=== PATIENT | female | born 2000 | race Hispanic/Latino ===

== ENCOUNTER 2018-06-07 00:09 | Observation (INO) ==
[2018-06-07] MEDS ORDERED: ZOFRAN IV ONE ×2 (01:20→07:39)
[2018-06-07] MEDS ORDERED: MORPHINE IV ONE ×2 (01:20→08:45)
[2018-06-07] MEDS ORDERED: NS 1,000 ML IV ONE ×5 (01:20→07:55)
[2018-06-07 01:34] LABS: URINE SOURCE CLEAN CATCH
[2018-06-07 01:37] LABS: BASO# 0.03 X1000 (0.0-0.2); BASO% 0.4 % (0.0-0.8); EOS# 0.12 X1000 (0.0-0.7); EOS% 1.4 % (0.0-10.0); HEMATOCRIT 39.2 % (37.0-47.0); IMM GRAN# 0.03 X1000 (0.0-0.04); IMM GRAN% 0.4 % (0.0-0.5); LYMPH# 2.24 X1000 (1.2-3.4); MCH 27.3 PG (27-31); MCHC 33.2 g/dL (33-37); MCV 82.2 FL (81-99); MONO# 0.72 X1000 (0.11-0.59); MONO% 8.7 % (1.7-9.3); MPV 10.8 FL (7.4-10.4); NEUT# 5.17 X1000 (1.4-6.5); NEUT% 62.1 % (42.2-75.2); PLT 263 X1000 (130-400); RBC 4.77 XMIL (4.2-5.4); RDW 14.2 % (11.5-14.5); WBC 8.31 X1000 (4.8-10.8)
[2018-06-07 01:57] LABS: BILIRUBIN URINE NEGATIVE (NEGATIVE); BLOOD URINE SMALL (NEGATIVE); COLOR YELLOW; GLUCOSE URINE NEGATIVE (NEGATIVE); KETONE URINE NEGATIVE (NEGATIVE); LEUKOCYTES URINE MODERATE (NEGATIVE); NITRITE URINE NEGATIVE (NEGATIVE); PH URINE 5.5; PROTEIN URINE TRACE mg/dL (NEGATIVE); SP GRAVITY URINE 1.028; TURBIDITY URINE CLEAR (CLEAR); UR EPITHELIAL CELLS <10 /HPF (<10); URINE BACTERIA 1+ /HPF; URINE RBC <10 /HPF (<10); URINE WBC 20-40 /HPF (<10); UROBILINOGEN URINE NORMAL (NORMAL)
[2018-06-07 02:15] LABS: AGAP 11; BUN 13 mg/dL (8-22); CALCIUM 9.6 mg/dL (8.8-10.2); CHLORIDE 105 mmol/L (98-107); COSMO 279; CREATININE 0.4 mg/dL (0.5-0.9); ESTIMATED GFR > 60; GLUCOSE 94 mg/dL (70-104); POTASSIUM 4.3 mmol/L (3.5-5.1); SODIUM 140 mmol/L (136-145); TCO2 24 mmol/L (25-35)
[2018-06-07] MEDS ORDERED: ROCEPHIN 1 GM in NS 50 ML IV ONE (02:17)
--- NOTE | 2018-06-07 05:27 | PROVIDER DOCUMENTATION ---
This chart was entered by Stacy Watts Scribe, acting as scribe for David Herbert MD. HPI-Abdominal Pain/GI Problem - General Chief Complaint: Abdominal Pain Stated Complaint: PAIN/DIZZY Time Seen by Provider: 06/07/18 00:50 Source: patient Allergies/Adverse Reactions: Patient Allergies Allergy/AdvReac Type Severity Reaction Status Date / Time seafood Allergy ANAPHYLAXIS Uncoded 05/29/18 20:19 Home Medications: Home Medication List Medication Instructions Recorded Confirmed Last Taken Type Doxylamine/Pyridoxine HCl 1 ea PO BID 30 Days #60 tablet.dr 05/29/18 Unknown Rx [Diclegis Dr 10-10 mg Tablet] Ondansetron [Ondansetron Odt] 4 mg PO Q8H PRN PRN 3 Days #12 06/07/18 Unknown Rx tab.rapdis - History of Present Illness-ABD Nature of Presenting Problems: 17 yof presents to er w/co 3 hours ago, epigastric and llq pain. pt states she was carrying 3 yo son when pain started. pt has no prior medical hx. pt was seen in er last week for nausea and vomiting and had positive test. pt reports she is 5 weeks . continues on macrodantin as prescribe this ER less than 1 wk ago. Abdominal Pain Onset Location: reports: LLQ, epigastric Pain Radiation: reports: no radiation Quality of Pain: reports: aching Severity in ED: reports: moderate Review of Systems - Adult - REVIEW OF SYSTEMS - ADULT Constitutional: reports: no symptoms reported. denies: chills, fever Eyes: reports: no symptoms reported Ears, Nose, Mouth & Throat: reports: no symptoms reported Cardiovascular: reports: no symptoms reported Respiratory: reports: no symptoms reported Gastrointestinal: reports: see HPI, abdominal pain (llq and epigastric). denies: diarrhea, nausea, vomiting Genitourinary: reports: no symptoms reported Musculoskeletal: reports: no symptoms reported Integumentary: reports: no symptoms reported Neurological: reports: no symptoms reported. denies: headache/migraines, loss o f balance, syncope Psychiatric: reports: no symptoms reported Endocrine: reports: no symptoms reported Hematologic/Lymphatic: reports: no symptoms reported Allergic/Immunologic: reports: no symptoms reported All Other Systems: Reviewed and Negative Past History - Adult - PAST MEDICAL HISTORY-ADULT Review of Records: reports: Old Records Reviewed, Nursing Assessment Review, Medications Reviewed, Social history reviewed & non-contributory. Major Childhood Illnesses: reports: denies history Cardiovascular: reports: denies history Respiratory: reports: denies history Gastrointestinal: reports: denies history Obstetrical/Gynecological: reports: denies history Genitourinary: reports: denies history Musculoskeletal: reports: denies history Neurological: reports: denies history Endocrine/Immune: reports: denies history Other Conditions: reports: denies history - PRIOR SURGERIES/PROCEDURES Surgical/Procedure History: reports: none - IMMUNIZATION STATUS Childhood Immunizations: See Nurse Assessment Flu Vaccine: See Nurse Assessment - FAMILY HISTORY Family History: reviewed, not pertinent - SOCIAL HISTORY Smoking: non-smoker Substance Use: none/never Physical Exam-General - PHYSICAL EXAM-ADULT Initial Vital Signs Reviewed: Yes - CONSTITUTIONAL General Appearance: alert, moderate distress. negative: slow to respond, obtunded, combative - EYES Eyes: PERRL/EOMI - HEAD, EARS, NOSE, MOUTH & THROAT HENMT: normocephalic/atraumatic, moist mucous membranes, normal ENT inspection - NECK Neck: non-tender, full range of motion, supple, normal inspection - RESPIRATORY Respiratory: chest non-tender, lungs clear, normal breath sounds. negative: respiratory distress, decreased breath sounds, accessory muscle use - CARDIOVASCULAR Cardiovascular: normal peripheral pulses, regular rate, rhythm. negative: JVD, bradycardia, tachycardia - GASTROINTESTINAL (ABDOMEN) Abdominal Exam: normal bowel sounds, soft, no organomegaly, no pulsatile mass, tenderness (llq and epigastric moderate). negative: non tender, abnormal bowel sounds, distended, guarding - LYMPHATIC Lymphatic: no adenopathy - MUSCULOSKELETAL Back Exam: normal inspection, no CVA tenderness, no vertebral tenderness Extremity: normal range of motion, non-tender, normal inspection Peripheral Pulses: radial (R): 2+, radial (L): 2+ - SKIN Integumentary: normal color, normal turgor, diaphoresis. negative: rash, swelling, tenderness - NEUROLOGIC Neurologic: environmental scientist II-XII nml as tested, grossly normal - PSYCHIATRIC Psych/Mental Status: normal mood/affect, normal thought content, normal thought process, oriented x 3, disheveled. negative: depressed affect, paranoid, tearful Progress - PLAN OF CARE/RESULTS Progress/Plan/Lab Results: Vital Signs - 8 hr 06/07/18 00:15 Temperature 98.4 F Pulse Rate 82 Respiratory Rate 20 Blood Pressure 104/65 O2 Sat by Pulse Oximetry 98 Result Diagrams: 06/07/18 00:40 06/07/18 00:40 - REASSESSMENT Reassessment #1 Time Reassessed: 05:07 Status: improving (NOT TRANSVAG U/S REPORT , NO INTRAUTERINE OR ECTOPIC IDENTIFIED,FLUID IN THE CX. HCG ONLY 1999. NO VAG BLEEDING . UTI IS PRESENT AND POSSIBLY THE SOURCE OF THE PELVIC PAIN.) Reassessment #2 Time Reassessed: 05:19 Status: improving (resting w/o vomiting . results reviewed w. pt and . will continue on macrobid 9which has been suplimented with wilberto delatorre) as urine culture from 05/29 is mixed eri.) - ULTRASOUND (By Radiology) 1 US Study: Transvaginal Impression: Normal (small amunt poorly visiualized flind in cervix/ no intrauterine or ectopic pregancy seen.), See EMR Report Departure - Departure Date of Disposition Decision: 06/07/18 Time of Disposition Decision: 05:10 DIAGNOSIS: UTI (urinary tract infection), test positive, Nausea & vomiting Disposition: HOME 01 Certified Medical Emergency: Emergent Condition: Stable Additional Freetext Instructions: ED Follow Up Instructions: You have been treated by a care provider in the Emergency Department. These instructions are being provided to you so you can have an understanding of how to care for yourself upon discharge. Upon discharge from the Emergency Depar tment, you are responsible for making arrangements for follow-up care by a physician of your choice. Take all prescribed medications as directed. Return to the Emergency Department immediately for any new or worsening symptoms. You may call the Physician Referral phone number at [phone] to obtain a list of Physicians who are taking new patients. Prescriptions: Ondansetron [Ondansetron Odt] 4 mg PO Q8H PRN PRN 3 Days #12 tab.rapdis PRN Reason: Nausea And Vomiting Referrals and Follow-Ups: None,PCP [Primary Care Provider] - Discharge Education: Urinary Tract Infection, Adult, and Urinary Tract Infection, First Trimester of , [id number] - Critical Care Note This patient required my direct & personal management of CC.: No Attestation - Physician/ RENETTA Attestation Patient care was provided by Advanced Practice Provider:: No The physician spent face to face time with patient:: Yes Advanced Practice Provider documentation review:: Supervising physician onsite and consulted in the evaluation and care of this patient. The physician did have a face to face encounter with the patient. This chart was documented by the indicated scribe, (Stacy Watts Scribe) and accurately reflects the services I performed and decisions made by me, David Herbert MD, as attested by the provider's signature.
[2018-06-07 07:28] LABS: BASO# 0.02 X1000 (0.0-0.2); BASO% 0.3 % (0.0-0.8); EOS# 0.07 X1000 (0.0-0.7); EOS% 1.1 % (0.0-10.0); HEMATOCRIT 34.3 % (37.0-47.0); HEMOGLOBIN 11.1 g/dL (12.0-16.0); IMM GRAN# 0.02 X1000 (0.0-0.04); IMM GRAN% 0.3 % (0.0-0.5); LYMPH# 2.24 X1000 (1.2-3.4); LYMPH% 34.6 % (20.5-51.1); MCH 26.6 PG (27-31); MCHC 32.4 g/dL (33-37); MCV 82.3 FL (81-99); MONO# 0.59 X1000 (0.11-0.59); MONO% 9.1 % (1.7-9.3); MPV 10.7 FL (7.4-10.4); NEUT# 3.53 X1000 (1.4-6.5); NEUT% 54.6 % (42.2-75.2); PLT 218 X1000 (130-400); RBC 4.17 XMIL (4.2-5.4); RDW 14.1 % (11.5-14.5); WBC 6.47 X1000 (4.8-10.8)
[2018-06-07] MEDS ORDERED: XYLOCAINE-MPF 2% ONE (08:43)
[2018-06-07] MEDS ORDERED: ZOFRAN ONE (08:43)
[2018-06-07] MEDS ORDERED: DECADRON ONE ×2 (08:43→09:26)
[2018-06-07] MEDS ORDERED: DIPRIVAN 1% ONE (08:43)
[2018-06-07] MEDS ORDERED: ROBINUL ONE ×2 (08:43→08:49)
[2018-06-07] MEDS ORDERED: FENTANYL ONE (08:43)
[2018-06-07] MEDS ORDERED: QUELICIN (DOSE) ONE (08:47)
--- NOTE | 2018-06-07 08:50 | Diag Imaging Result Doc PS360 ---
US TRANSVAGINAL OB - 06/07/2018 8:03 AM INDICATION: preg and pelvic pain and low BP TECHNIQUE: Endovaginal COMPARISON: 3:01 AM FINDINGS: This exam is normal. The uterus and both ovaries are normal. No mass or fluid fluid. IMPRESSION: Negative exam. Electronically signed by Piyush Ge 06/07/2018 8:47 AM
--- NOTE | 2018-06-07 08:52 | Diag Imaging Result Doc PS360 ---
US TRANSVAGINAL OB - 06/07/2018 INDICATION: SUDDEN PELVIC PAIN, 5 WK GEST TECHNIQUE: Endovaginal COMPARISON: None FINDINGS: The quantitative hCG level is 2038. There is some trace fluid seen in the endocervical canal. Otherwise the endometrial canal is empty and appears normal. Endometrial stripe thickness is 8 mm. The uterus measures 10.1 x 5.9 x 5.4 cm. Both ovaries are normal. The right ovary measures 4.1 x 2.5 x 2.6 cm. The left ovary measures 3.2 x 2.3 x 2.1 cm. No pelvic free fluid. IMPRESSION: Trace free fluid in the endocervical canal. No significant pelvic free fluid. Standard ectopic precautions and follow-up recommended. Electronically signed by Piyush Ge 06/07/2018 8:49 AM
[2018-06-07] MEDS ORDERED: ZEMURON ONE (08:53)
[2018-06-07] MEDS ORDERED: LR 1,000 ML ONE ×2 (08:57→11:54)
[2018-06-07] MEDS ORDERED: SENSORCAINE-MPF 0.5%/EPI 1:200,000 ONE (08:57)
[2018-06-07 09:01] LABS: BASO# 0.02 X1000 (0.0-0.2); BASO% 0.3 % (0.0-0.8); EOS# 0.11 X1000 (0.0-0.7); EOS% 1.7 % (0.0-10.0); HEMATOCRIT 36.1 % (37.0-47.0); HEMOGLOBIN 11.8 g/dL (12.0-16.0); IMM GRAN# 0.02 X1000 (0.0-0.04); IMM GRAN% 0.3 % (0.0-0.5); LYMPH# 2.27 X1000 (1.2-3.4); LYMPH% 34.1 % (20.5-51.1); MCH 26.9 PG (27-31); MCHC 32.7 g/dL (33-37); MCV 82.4 FL (81-99); MONO# 0.45 X1000 (0.11-0.59); MONO% 6.8 % (1.7-9.3); MPV 10.5 FL (7.4-10.4); NEUT# 3.78 X1000 (1.4-6.5); NEUT% 56.8 % (42.2-75.2); PLT 223 X1000 (130-400); RBC 4.38 XMIL (4.2-5.4); RDW 14.1 % (11.5-14.5); WBC 6.65 X1000 (4.8-10.8)
[2018-06-07] MEDS ORDERED: VERSED ONE (09:08)
[2018-06-07] MEDS ORDERED: TORADOL ONE (09:31)
--- NOTE | 2018-06-07 09:40 | HISTORY AND PHYSICAL ---
CHIEF COMPLAINT: Abdominal pain, left lower quadrant pain. HISTORY OF PRESENT ILLNESS: The patient is a 17-year-old G 2, P 1-0-0-1 at 5 weeks and 5 days based on LMP, female who presented to the emergency room with complaint of severe abdominal pain that started last night while patient was in the shower. The patient describes acute dizziness and left lower quadrant pain that progressively has worsened. The patient reports pain started in the left lower quadrant and it has now progressed to generalized abdominal pain. The patient denies vaginal bleeding, shortness of breath, chest pain, nausea, or vomiting. PAST MEDICAL HISTORY: Noncontributory. 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 FAMILY HISTORY: Noncontributory. ALLERGIES: No known drug allergies. MEDICATIONS: None. REVIEW OF SYSTEMS: Please see HPI. PHYSICAL EXAM: VITAL SIGNS: Pulse 89, respiration 17, blood pressure 104/68, O2 saturation 99% on room air. Pain level 9/10, left abdomen. GEN: acute pain and distress noted. CARDIOVASCULAR: Positive S1, S2. Regular rate and rhythm. RESPIRATION: Clear to auscultation. ABDOMEN: Soft, tender, mild guarding. EXTREMITIES: No calf tenderness. Negative swelling. LABS: Hemoglobin 11.8, hematocrit 36.1, WBCs 6.65, platelets 223,000. HCG 2039. TRANSVAGINAL ULTRASOUND: showed no in the uterine cavity. No identified in the adnexal area and no free fluid noted. IMPRESSION: 17-year-old G 2, P 1,at 5 weeks and 5 days based on LMP with acute abdominal pain and of unknown location. Concern for ectopic . PLAN: 1. Prep for exploratory laparoscopy, possible salpingectomy, and possible laparotomy based on operative findings. 2. Type and cross. 3. RhoGAM pending type and screen 4. NPO. 5. Benefits, risks, and alternatives to the procedure were addressed with the patient. All questions were addressed and answered. The patient consented for said procedure. [facility]
[2018-06-07 10:08] LABS: URINE SOURCE CATH
[2018-06-07] MEDS: ZOSYN 3.375 GM in NS 50 ML IV SCH ×3 (10:10→21:01)
[2018-06-07 10:12] LABS: BILIRUBIN URINE NEGATIVE (NEGATIVE); BLOOD URINE NEGATIVE (NEGATIVE); COLOR STRAW; GLUCOSE URINE NEGATIVE (NEGATIVE); KETONE URINE NEGATIVE (NEGATIVE); LEUKOCYTES URINE NEGATIVE (NEGATIVE); NITRITE URINE NEGATIVE (NEGATIVE); PH URINE 7.5; PROTEIN URINE NEGATIVE (NEGATIVE); TURBIDITY URINE CLEAR (CLEAR); UR EPITHELIAL CELLS <10 /HPF (<10); URINE BACTERIA NEGATIVE /HPF; URINE RBC <10 /HPF (<10); URINE WBC <10 /HPF (<10); UROBILINOGEN URINE NORMAL (NORMAL)
[2018-06-07] MEDS: MORPHINE ONE ×3 (10:40→10:52)
[2018-06-07] MEDS ORDERED: MYLICON PO PRN (10:41)
[2018-06-07] MEDS ORDERED: AMBIEN PO PRN (10:41)
[2018-06-07] MEDS: PHENERGAN ONE ×4 (11:02→15:00)
[2018-06-07] MEDS ORDERED: CHLORASEPTIC SPRAY MT PRN (14:06)
[2018-06-07] MEDS ORDERED: NORCO-5 ONE (14:10)
[2018-06-07] MEDS: NORCO-5 PO PRN ×2 (16:55→21:01)
--- NOTE | 2018-06-07 18:00 | OPERATIVE NOTE ---
PROCEDURE DATE: 06/07/2018 This is an intraoperative consultation by Dr. Velazco. PREOP DIAGNOSIS: Possible ectopic . POSTOPERATIVE: Is acute appendicitis with possible spontaneous versus intrauterine . ESTIMATED BLOOD LOSS: 5 mL. SPECIMENS: Appendix. PROCEDURE PERFORMED: Laparoscopic appendectomy. ANESTHESIA: General. INDICATIONS: A 17-year-old female patient Dr. Velazco who presented with abdominal discomfort. She had an elevated HCG with no visible intrauterine noted. Concerns for ectopic based off her exam. Per history, she had pain for last several days. FINDINGS: Adnexal structures appeared normal. The uterus was somewhat boggy. The gallbladder was normal. There was no intraabdominal adhesions. The appendix was in a retrocecal location. It had some adhesions with thickened with some apparent appendicolith inside it. There was erythema concerning for acute appendicitis. No evidence perforation. OPERATIVE NOTE: Risks, benefits, alternatives was unable to be discussed with patient given the fact that she was under general anesthesia. We inspected the abdomen through Dr. Velazco' trocars. She had a 10 mm trocar at the umbilicus and a 5 mm trocar in the left lower quadrant. We inspected through these trocars, could only partially visualize the appendix. There was no injury to underlying structures from entry in the abdomen. Placed 5 mm trocar in the suprapubic location, upsized the left lower quadrant to a 12 mm trocar. We then began mobilizing the appendix out of the right lower quadrant. It was thickened and injected and concerning for acute appendicitis. The LigaSure was used to divide the mesoappendix and a 30 mm gold load stapler was used to divide the base of the appendix. Placed in EndoCatch bag. There was complete removal appendix with good closure the appendiceal stump. There is no injury to surrounding structures. Again inspected all quadrants in the abdomen. There was no evidence of other acute pathology. We closed the left lower quadrant incision with a Lino-Chase and 0 Vicryl. The other trocar was removed and noted to be hemostatic. The fascia was then closed at the umbilical incision with the 0 Vicryl suture. Skin was closed 4-0 Monocryl in subcuticular fashion. Dermabond was applied. Counts were correct. She is woken, transferred recovery. I spoke with family. cc: Cuhcho Moe MD
[2018-06-07] MEDS: LR 1,000 ML IV SCH (21:01)
[2018-06-07] MEDS: COLACE PO SCH (21:01)
[2018-06-07] MEDS: PERIDEX MT SCH (21:01)
[2018-06-08 01:40] LABS: HEMATOCRIT 33.6 % (37.0-47.0); HEMOGLOBIN 10.8 g/dL (12.0-16.0)
[2018-06-08] MEDS: ZOFRAN IV PRN ×2 (02:29→23:05)
[2018-06-08] MEDS: ZOSYN 3.375 GM in NS 50 ML IV SCH ×4 (04:12→22:45)
[2018-06-08] MEDS: NORCO-5 PO PRN ×4 (06:23→20:16)
[2018-06-08] MEDS: LR 1,000 ML IV SCH ×3 (06:24→15:26)
--- NOTE | 2018-06-08 08:38 | OB/GYN PROGRESS NOTE ---
Progress Note DIRECTOR STAGE - . Patient Problems: Current Active Problems Problem Status Onset test positive Acute Abdominal pain Acute S/P appendectomy Acute DIRECTOR STAGE Progress Note: Vital Signs - 24 hr 06/07/18 08:30 06/07/18 08:31 06/07/18 08:32 Temperature Pulse Rate 102 H 98 H 94 H Respiratory Rate 15 16 23 Blood Pressure 111/81 110/70 Blood Pressure [Right Arm] O2 Sat by Pulse Oximetry 99 99 99 06/07/18 08:40 06/07/18 08:47 06/07/18 08:50 Temperature Pulse Rate 92 H 89 88 Respiratory Rate 19 17 25 H Blood Pressure 104/68 Blood Pressure [Right Arm] O2 Sat by Pulse Oximetry 99 99 99 06/07/18 10:01 06/07/18 10:27 06/07/18 10:37 Temperature 97.4 F L Pulse Rate 88 104 H 99 H Respiratory Rate 25 H 14 16 Blood Pressure 104/68 Blood Pressure [Right Arm] 89/64 106/51 O2 Sat by Pulse Oximetry 100 99 06/07/18 10:47 06/07/18 10:57 06/07/18 11:07 Temperature Pulse Rate 94 H 103 H 106 H Respiratory Rate 14 12 15 Blood Pressure Blood Pressure [Right Arm] 107/59 90/68 114/67 O2 Sat by Pulse Oximetry 100 100 100 06/07/18 11:17 06/07/18 11:27 06/07/18 11:42 Temperature Pulse Rate 100 H 102 H 102 H Respiratory Rate 13 13 14 Blood Pressure Blood Pressure [Right Arm] 100/62 116/61 101/67 O2 Sat by Pulse Oximetry 100 100 100 06/07/18 11:57 06/07/18 12:12 06/07/18 12:27 Temperature Pulse Rate 106 H 103 H 107 H Respiratory Rate 16 14 17 Blood Pressure Blood Pressure [Right Arm] 113/64 100/62 107/65 O2 Sat by Pulse Oximetry 98 99 97 06/07/18 12:57 06/07/18 13:27 06/07/18 13:57 Temperature Pulse Rate 114 H 105 H 112 H Respiratory Rate 15 26 H 20 Blood Pressure Blood Pressure [Right Arm] 121/56 109/57 133/51 O2 Sat by Pulse Oximetry 98 96 99 06/07/18 14:27 06/07/18 15:00 06/07/18 16:00 Temperature 98.0 F Pulse Rate 117 H 110 H 108 H Respiratory Rate 13 16 Blood Pressure 98/58 100/63 Blood Pressure [Right Arm] 102/57 O2 Sat by Pulse Oximetry 97 100 99 06/07/18 16:02 06/07/18 17:00 06/07/18 18:00 Temperature Pulse Rate 110 H 111 H 107 H Respiratory Rate Blood Pressure 98/58 110/67 122/65 Blood Pressure [Right Arm] O2 Sat by Pulse Oximetry 100 06/07/18 20:00 06/07/18 21:50 06/07/18 23:54 Temperature 98.8 F 99.2 F Pulse Rate 88 78 Respiratory Rate 16 18 Blood Pressure 103/57 98/46 Blood Pressure [Right Arm] O2 Sat by Pulse Oximetry 100 100 99 06/08/18 05:00 06/08/18 07:33 06/08/18 08:16 Temperature 98.8 F 98.8 F Pulse Rate 73 77 78 Respiratory Rate 18 18 14 Blood Pressure 92/49 104/51 Blood Pressure [Right Arm] O2 Sat by Pulse Oximetry 100 100 100 Bedside Urine ED: Urine Bedside Start: 06/07/18 01:16 Freq: Status: Complete Protocol: Activity Type Activity Date Activity User E-Sign Co-Sign Detail Recorded Client Recorded Date Recorded By Document 06/07/18 01:16 [id number] 06/07/18 01:16 [id number] Edit Status 06/08/18 00:16 [id number] Active=>Complete [id number] 06/08/18 00:16 [id number] 06/07/18 01:16 Point of Care [Bedside Point of Care] -Lot # [id number] - Results Positive -Control Line Visible? Yes 06/07/18 02:54 - Final Blood Laboratory Results - last 24 hr 06/07/18 06/07/18 06/07/18 08:52 10:02 11:02 WBC 6.65 RBC 4.38 Hgb 11.8 L Hct 36.1 L MCV 82.4 MCH 26.9 L MCHC 32.7 L RDW Std Deviation 14.1 Plt Count 223 MPV 10.5 H Immature Gran % (Auto) 0.3 Neut % (Auto) 56.8 Lymph % (Auto) 34.1 [place] % (Auto) 6.8 Eos % (Auto) 1.7 Baso % (Auto) 0.3 Immature Gran # (Auto) 0.02 Neut # (Auto) 3.78 Lymph # (Auto) 2.27 [place] # (Auto) 0.45 Eos # (Auto) 0.11 Baso # (Auto) 0.02 Ser , Semi-Qnt 2126.0 Urine Source CATH Urine Color STRAW Urine Turbidity CLEAR Urine pH 7.5 Ur Specific [place] 1.000 Urine Protein NEGATIVE Ur Glucose (Stick) NEGATIVE Ur Ketones (Stick) NEGATIVE Urine Blood NEGATIVE Urine Nitrite NEGATIVE Urine Bilirubin NEGATIVE Urobilinogen Dipstick NORMAL Urine Leukocytes NEGATIVE Urine WBC (Auto) <10 Urine RBC (Auto) <10 U Epithel Cells (Auto) <10 Urine Bacteria (Auto) NEGATIVE 06/08/18 06/08/18 00:45 00:45 WBC RBC Hgb 10.8 L Hct 33.6 L MCV MCH MCHC RDW Std Deviation Plt Count MPV Immature Gran % (Auto) Neut % (Auto) Lymph % (Auto) [place] % (Auto) Eos % (Auto) Baso % (Auto) Immature Gran # (Auto) Neut # (Auto) Lymph # (Auto) [place] # (Auto) Eos # (Auto) Baso # (Auto) Ser , Semi-Qnt 2576.0 Urine Source Urine Color Urine Turbidity Urine pH Ur Specific [place] Urine Protein Ur Glucose (Stick) Ur Ketones (Stick) Urine Blood Urine Nitrite Urine Bilirubin Urobilinogen Dipstick Urine Leukocytes Urine WBC (Auto) Urine RBC (Auto) U Epithel Cells (Auto) Urine Bacteria (Auto) HPI: Pt seen and examined. Reports upper abdominal pain. Admits to ambulation once over night. Tolerating clears. Denies nausea/emesis/fever/chills/SOB/CP. VS: please see above PHYSICAL EXAM: GEN: NAD, AAOx 3 CV: +S1S2, RRR RESP: CTA ABD: Tender epigastric pain with light palpation. neg LLQ pain INC: trocar sites C/D/I x 4 EXT: neg CT, neg edema HC-->2100-->2500/over 24 hours Hgb: 10 ASSESSMENT: 17 y/o @ approx 5weeks and 6 days based on LMP of 04/28/18 POD #1 s/p Diagnositic Laparoscopy and Appendectomy secondary to Acute abdominal pain and of unknown location PLAN: -Continue routine post-op care -D/c sandoval cath -Con't clears until flatus -OOB-->ambulation -Incentive spirometry -Concern for abnormal rise in HCG level. Will repeat HCG at 48 hour lien. If quant does not double in 48 hrs will consider MTX therapy. -Consider d/c today pending clinical presentation and pain control s/p ambulation
[2018-06-08] MEDS: COLACE PO SCH ×2 (09:25→20:15)
[2018-06-08] MEDS: PERIDEX MT SCH ×2 (09:26→20:15)
--- NOTE | 2018-06-08 14:35 | GENERAL SURGERY PROGRESS NOTE ---
DATE: 06/08/2018 SUBJECTIVE: She complains of pain. Her abdomen is soft. No fevers. No tachycardia. OBJECTIVE: Pathology is back and it shows acute appendicitis. I reviewed her labs. Her beta hCG is climbing but minimally. Dr. Velazco is following these serially. ASSESSMENT AND PLAN: This is a 17-year-old female status post incidental appendectomy at the time of a diagnostic laparoscopy. She is doing well. Okay to advance diet, remove [place], and begin mobilization from a surgical perspective. cc: Chucho Moe MD
[2018-06-09] MEDS: LR 1,000 ML IV SCH ×3 (00:54→09:20)
[2018-06-09 01:39] LABS: HEMATOCRIT 31.7 % (37.0-47.0); HEMOGLOBIN 10.1 g/dL (12.0-16.0); MCH 27.5 PG (27-31); MCHC 31.9 g/dL (33-37); MCV 86.4 FL (81-99); MPV 10.4 FL (7.4-10.4); RBC 3.67 XMIL (4.2-5.4); RDW 14.6 % (11.5-14.5); WBC 7.55 X1000 (4.8-10.8)
[2018-06-09 02:08] LABS: AGAP 11; ALB/GLOB RATIO 1.2; ALBUMIN 3.1 g/dL (3.5-5.0); ALKALINE PHOSPHATASE 58 U/L (32-104); BUN 7 mg/dL (8-22); CALCIUM 7.9 mg/dL (8.8-10.2); CHLORIDE 109 mmol/L (98-107); COSMO 279; CREATININE 0.4 mg/dL (0.5-0.9); ESTIMATED GFR > 60; GLUCOSE 90 mg/dL (70-104); GOT 14 U/L (10-30); GPT 14 U/L (10-36); POTASSIUM 3.8 mmol/L (3.5-5.1); SODIUM 141 mmol/L (136-145); TCO2 21 mmol/L (25-35); TOTAL BILIRUBIN 0.35 mg/dL (0.20-1.00); TOTAL PROTEIN 5.7 g/dL (6.3-8.3)
[2018-06-09] MEDS: NORCO-5 PO PRN (03:53)
[2018-06-09] MEDS: ZOSYN 3.375 GM in NS 50 ML IV SCH ×2 (04:50→09:20)
--- NOTE | 2018-06-09 09:19 | Diag Imaging Result Doc PS360 ---
EXAM: US TRANSVAGINAL OB 06/09/2018 HISTORY: of unknown location TECHNIQUE: Endovaginal COMMENT: There is free fluid in the cul-de-sac. There is a small gestational sac in the fundal endometrium. There is no visible yolk sac or pole. The sac itself measures less than 9 mm in diameter. The ovaries are not enlarged and there is color Doppler flow bilaterally. Compared to the previous study of 06/07/2018 the fundal gestational sac was not visible at that time. The free fluid was also not previously present. IMPRESSION: Small fundal gestational sac. Free fluid. Electronically signed by Homero Collado 06/09/2018 9:17 AM
[2018-06-09] MEDS: PERIDEX MT SCH (09:20)
[2018-06-09] MEDS: COLACE PO SCH (09:20)
[2018-06-09 11:24] VITALS: BP 98/58
--- NOTE | 2018-06-09 12:50 | OB/GYN PROGRESS NOTE ---
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 Progress Note: Vital Signs - 24 hr 06/08/18 14:40 06/08/18 16:39 06/08/18 20:35 Temperature 98.1 F 99.3 F Pulse Rate 78 83 80 Respiratory Rate 16 15 18 Blood Pressure 110/59 98/56 O2 Sat by Pulse Oximetry 100 99 100 06/08/18 23:43 06/09/18 05:46 06/09/18 11:24 Temperature 98.6 F 98.0 F 98.6 F Pulse Rate 76 59 L 81 Respiratory Rate 18 18 16 Blood Pressure 92/50 91/47 98/58 O2 Sat by Pulse Oximetry 94 L 100 99 Bedside Urine ED: Urine Bedside Start: 06/07/18 01:16 Freq: Status: Complete Protocol: Activity Type Activity Date Activity User E-Sign Co-Sign Detail Recorded Client Recorded Date Recorded By Document 06/07/18 01:16 [id number] 06/07/18 01:16 [id number] Edit Status 06/08/18 00:16 [id number] Active=>Complete [id number] 06/08/18 00:16 [id number] 06/07/18 01:16 Point of Care [Bedside Point of Care] -Lot # [id number] - Results Positive -Control Line Visible? Yes 06/07/18 04:40 Urine Culture - Final Urine,Clean Catch MIXED KEISHA 06/07/18 02:54 - Final Blood Blood Culture - Final Coag Negative Staphylococcus Laboratory Results - last 24 hr 06/09/18 06/09/18 06/09/18 01:34 01:34 01:34 WBC 7.55 RBC 3.67 L Hgb 10.1 L Hct 31.7 L MCV 86.4 MCH 27.5 MCHC 31.9 L RDW Std Deviation 14.6 H Plt Count 222 MPV 10.4 Sodium 141 Potassium 3.8 Chloride 109 H Carbon Dioxide 21 L Anion Gap 11 BUN 7 L Creatinine 0.4 L Estimated GFR/1.73 m2 > 60 BUN/Creatinine Ratio 18 Glucose 90 Calculated Osmolality 279 Calcium 7.9 L Total Bilirubin 0.35 AST 14 ALT 14 Alkaline Phosphatase 58 Total Protein 5.7 L Albumin 3.1 L Globulin 2.6 Albumin/Globulin Ratio 1.2 Ser , Semi-Qnt 3826.0 HPI: Pt seen and examined. Currently w/o complaints. Pain well controlled on PO pain meds. Ambulating and urinating without difficulty. Tolerating diet. Denies fevers/chills/N/V. VS: please see above PHYSICAL EXAM: GEN: NAD, AAOx 3 CV: +S1S2, RRR RESP: CTA ABD: NTTP. neg LLQ pain INC: trocar sites C/D/I x 4 EXT: neg CT, neg edema HC-->2100-->2500-->3800 over 48hrs Hgb: 10.1 US: IUP noted ASSESSMENT: 17 y/o @ approx 6 weeks and 0 days based on LMP of 04/28/18 POD #2 s/p Diagnositic Laparoscopy and Appendectomy secondary to Acute abdominal pain and of unknown location PLAN: -US confirmed IUP. -Reviewed pathology report -Advised to continue PNV daily -Plan for d/c home today -Advised to f/u with Dr. Velazco for OB visits
--- NOTE | 2018-06-09 17:56 | GENERAL SURGERY PROGRESS NOTE ---
DATE: 06/09/2018 SUBJECTIVE: Feeling better. Pain is improved. She is tolerating a diet. She is voiding. No fevers. No tachycardia. I reviewed her labs. Her beta HCG does continue to climb. Repeat ultrasound has confirmed intrauterine . PLAN: I can see her in a week. She will follow up with Dr. Velazco for her care. cc: Chucho Moe MD
--- NOTE | 2018-06-09 20:53 | OPERATIVE NOTE ---
PROCEDURE DATE: 06/07/2018 SURGEON: Dr. Marek Velazco. ASSISTANTS: None. PREOPERATIVE DIAGNOSES: 1. Suspected ectopic . 2. Acute abdomen. POSTOPERATIVE DIAGNOSIS: 1. of unknown location. 2. Appendicitis. PROCEDURES PERFORMED: Diagnostic laparoscopy. ANESTHESIA: General endotracheal anesthesia. ESTIMATED BLOOD LOSS: None. SPECIMENS: None. COMPLICATIONS: None. INDICATION FOR THE PROCEDURE: Ms. Perez is a 17-year-old G2, P 1-0-0-1, who presented to the emergency department with complaints of acute sudden onset abdominal pain. Denied vaginal bleeding at the time. Quantitative beta HCG was performed and noted to be 2000. On ultrasound, of unknown location was noted with concern for ectopic based on patient's clinical presentation. SURGICAL RISKS: The patient was informed of the risks and benefits of the diagnostic laparoscopy. The risks included, but are not limited to, bleeding, infection, injury to internal organs, possible blood transfusion, possible hysterectomy and possible oophorectomy. The patient was counseled on the potential loss of fertility following unilateral salpingectomy. The patient was counseled on possible laparotomy and all other indicated procedures. The patient expressed understanding of the risks involved and all questions were answered and the patient consented to the procedure. DESCRIPTION OF PROCEDURE: The patient was taken to the operating room where a time out was performed to confirm correct patient and correct procedure. The patient was then positioned on the operating table in the dorsal lithotomy position with the legs supported, using Rickey type stirrups. General anesthesia was induced. The abdomen and vagina were prepped and draped in the usual sterile fashion. Attention was then turned to the perineum where a sponge stick was placed into the vaginal area to act as a uterine manipulator. Attention was then turned to the abdomen where a vertical incision was made at the umbilicus. The varies needle was introduced into the peritoneum. Placement of the needle was confirmed using normal saline solution. Pneumoperitoneum was then established with approximately 3 L of carbon dioxide. The Veress needle was removed. An 11 mm trocar and sleeve were inserted through the incision into the peritoneum. Laparoscopic visualization confirmed the intraperitoneal insertion of the port. Pneumoperitoneum was maintained using carbon dioxide. The sponge stick located in the vaginal vault was used to help manipulate the uterus. However, bilateral adnexal areas were not completely visualized. A second small horizontal incision was made approximately 10 cm to the left of the midline incision and a 5 mm trocar was introduced under direct visualization. The abdomen was thoroughly inspected. Using am atraumatic grasper, the bilateral fallopian tubes were normal. No adnexal masses were found in the bilateral tubes or bilateral ovaries. Therefore, no concern for ectopic based off of visual presentation. The rest of the abdomen was thoroughly inspected. Bowel adhesions were noted along the lower right pelvic sidewall and concern for a possible appendicitis was noted. An intraoperative consult was called to General Surgery to assess for appendicitis and possible appendectomy. Dr. Moe presented to the OR to assess the patient's pelvic anatomy and based on operative findings, Dr. Moe agreed patient had a an acute appendicitis and recommended appendectomy. Please see op note for completion of surgical procedure with Dr. Moe, General Surgery. [facility]
--- NOTE | 2018-06-10 14:24 | DISCHARGE SUMMARY ---
ADMISSION DATE: 06/07/2018 DISCHARGE DATE: 06/09/2018 ADMISSION DIAGNOSIS: Acute appendicitis with intrauterine . SUMMARY OF HOSPITAL COURSE: The patient on hospital day #1, patient presented to the emergency room with acute onset of abdominal pain and of unknown [*]. At the time, chart writer was concerned for ectopic and a diagnostic laparoscopy was performed, and no ectopic was noted. However, intraoperative consultation with general surgery revealed an acute appendicitis, which led to a laparoscopic appendectomy. Hospital day #2 postop day #1, patient reporting abdominal pain with only mild resolution from prior onset for presentation. Pain however is well controlled with p.o. pain medications. The patient denied ambulation at the time, but tolerating clear liquid diet with no nausea or vomiting. Hospital day #3 postop day #2, beta HCG quant levels found to be rising appropriately with a more than 50% increase. Ultrasound showed a positive intrauterine gestational sac, however, no yolk sac or pole identified. Pathology report noted acute appendicitis. Patient on hospital day #3 reports resolution of abdominal pain, admits to increase ambulation, and urinating without difficulty. Pain well controlled not requiring p.o. pain medications, and tolerating regular diet. DISPOSITION ON DISCHARGE: The patient is stable and plan for discharge home. DISCHARGE MEDICATIONS: 1. Zofran 4 mg q.8 hours p.r.n. 2. vitamins daily. FOLLOW UP: Patient advised to follow up with Dr. Velazco in 1 week for a new obstetrical visit.
== END 2018-06-09 14:42 | disposition home or self-care (01) ==
LOC: ED 00:09 → 4N 00:10 → OPS 00:10
PROVIDERS: ADMIT Obstetrics & Gynecology; ATTEND Obstetrics & Gynecology
CPT/HCPCS: 76817; 80048; 80053; 81001; 81025; 83605; 84702; 85014; 85018; 85025; 85027; 86850; 86900; 86901; 87040; 87088; 88304; 94761; 94799; 96361; 96365; 96366; 96375; 96376; 99285; A9270; J0330; J0696; J1100; J1885; J2250; J2270; J2405; J2543; J2550; J3010; J7030; J7120